=== PATIENT | female | born 1955 | race Caucasian/White ===

== ENCOUNTER → 2020-11-30 | Outpatient (CLI) | payer MEDICARE, OTHER | LOC: KOH-I 10:46 | DX: M47.816 Spondylosis without myelopathy or radiculopathy, lumbar region (principal); M41.80 Other forms of scoliosis, site unspecified; M54.16 Radiculopathy, lumbar region; R20.8 Other disturbances of skin sensation; M43.16 Spondylolisthesis, lumbar region; M51.36 Other intervertebral disc degeneration, lumbar region; M51.37 Other intervertebral disc degeneration, lumbosacral region; M48.07 Spinal stenosis, lumbosacral region; M48.061 Spinal stenosis, lumbar region without neurogenic claudication | CPT/HCPCS: 72148 ==